=== PATIENT | female | born 1945 | race Caucasian/White ===

== ENCOUNTER 2018-03-09 02:29 | Emergency (ER) | payer OTHER ==
[~2018-03-09] VITALS: Ht 167.6 cm; Wt 70.3 kg
--- NOTE | 2018-03-09 02:40 | NUR ---
Pt bib RA 82 from home for s/p syncopal episode. Per paramedics, pt bp on the field was 68/30. Upon arrival, pt is AAO x 4 and speaking in complete sentences. Pt stated that she took a handful of norvasc and atenolol at around 199903/08/18. Pt presents to ER with right ac 20 g. Pt placed on monitor.
[2018-03-09] MEDS ORDERED: IV NORMAL SALINE 1000 ML BAG IV ONE ×3 (02:45→03:30)
[2018-03-09] MEDS ORDERED: CALCIUM GLUCONATE 1 GM/10 ML VIAL IV ONE ×4 (02:46→04:00)
[2018-03-09] MEDS ORDERED: ONDANSETRON 4 MG/2 ML VIAL ONE ×2 (02:49→03:02)
[2018-03-09] MEDS ORDERED: GLUCAGON,HUMAN RECOMBINANT 1 MG VIAL ONE ×5 (02:49→03:11)
[2018-03-09 03:00] LABS: BASOPHILS % (AUTO) 0.4 % (0.0-2.0); EOSINOPHILS # (AUTO) 0.3 K/uL (0.0-0.7); EOSINOPHILS % (AUTO) 3.4 % (0.0-7.0); HEMATOCRIT 38.5 % (31.2-41.9); HEMOGLOBIN 13.3 g/dL (10.9-14.3); LYMPHOCYTES # (AUTO) 1.4 K/uL (20.0-40.0); LYMPHOCYTES % (AUTO) 16.6 % (20.5-51.5); MEAN CORPUSCULAR HEMOGLOBIN 35.5 uug (24.7-32.8); MEAN CORPUSCULAR HGB CONC 35 g/dL (32.3-35.6); MONOCYTES # (AUTO) 0.9 K/uL (2.0-10.0); MONOCYTES % (AUTO) 10.6 % (0.0-11.0); NEUTROPHILS # (AUTO) 5.9 K/uL (1.8-8.9); PLATELET COUNT (AUTO) 311 K/uL (179-408); RED BLOOD CELL COUNT(AUTO) 3.74 MIL/uL (3.63-4.92); WHITE BLOOD COUNT (AUTO) 8.5 K/uL (3.8-11.8)
[2018-03-09] MEDS ORDERED: GLUCAGON,HUMAN RECOMBINANT 1 MG VIAL IVP ONE ×4 (03:00→05:00)
[2018-03-09] MEDS ORDERED: CALCIUM GLUCONATE IV 1 GM in IV DEXTROSE 5% 50 ML IV ONE ×8 (03:00→06:45)
[2018-03-09] MEDS ORDERED: ATROPINE SULFATE 1 MG/10 ML DISP.SYRIN ONE (03:13)
[2018-03-09] MEDS ORDERED: NOREPINEPHRINE BITARTRATE 4 MG/4 ML VIAL IV ONE (03:17)
[2018-03-09 03:28] LABS: CARBON DIOXIDE 22 mmol/L (21-32); CHLORIDE 99 mmol/L (98-107); CREATININE 1.4 mg/dL (0.6-1.3); GLUCOSE 174 mg/dL (74-106); POTASSIUM 3.5 mmol/L (3.5-5.1); UREA NITROGEN, BLOOD 23 mg/dL (7-18)
[2018-03-09] MEDS ORDERED: NOREPINEPHRINE BITARTRATE 8 MG in IV DEXTROSE 5% 500 ML IV PRN (03:30)
[2018-03-09] MEDS ORDERED: ETOMIDATE 20 MG/10 ML VIAL IV ONE (03:30)
[2018-03-09] MEDS ORDERED: SUCCINYLCHOLINE CHLORIDE 200 MG/10 ML VIAL IV ONE (03:30)
[2018-03-09 03:31] LABS: ETHANOL 92 MG/DL (0-0)
[2018-03-09 03:34] LABS: ALANINE AMINOTRANSFERASE 34 U/L (14-59); ALKALINE PHOSPHATASE 83 U/L (50-136); ASPARTATE AMINOTRANSFERASE 38 U/L (15-37); BILIRUBIN,DIRECT 0.1 mg/dL (0.0-0.2); BILIRUBIN,TOTAL 0.3 mg/dL (0.2-1.0); TOTAL PROTEIN, SERUM 5.9 g/dL (6.4-8.2)
[2018-03-09] MEDS ORDERED: INSULIN REGULAR, HUMAN 300 UNIT/3 ML VIAL ONE (03:34)
[2018-03-09 03:35] LABS: ACETAMINOPHEN < 2.0 ug/mL (10-30)
[2018-03-09] MEDS ORDERED: FENTANYL CITRATE 100 MCG/2 ML AMPUL ONE (03:39)
--- NOTE | 2018-03-09 03:42 | NUR ---
Central line placed by JOSSE TAPIA at 0702.
--- NOTE | 2018-03-09 04:09 | NUR ---
0409 - TIME OF INTUBATION
[2018-03-09] MEDS ORDERED: DEXTROSE 50% 50 ML DISP.SYRIN ONE (04:16)
--- NOTE | 2018-03-09 04:16 | NUR ---
Xray at bedside.
[2018-03-09] MEDS ORDERED: POTASSIUM CHLORIDE 50 ML ONE (04:18)
[2018-03-09] MEDS ORDERED: DRIP ONE (04:20)
[2018-03-09] MEDS ORDERED: DOPAMINE ONE (04:20)
[2018-03-09] MEDS ORDERED: CALCIUM CHLORIDE 1 GM/10 ML DISP.SYRIN IVP ONE ×8 (04:22→07:45)
[2018-03-09] MEDS ORDERED: EPINEPHRINE 1 MG/1 ML AMP ONE (04:30)
[2018-03-09] MEDS ORDERED: EPINEPHRINE 1:1000 30 MG/30 ML VIAL ONE (04:32)
[2018-03-09] MEDS ORDERED: INSULIN REGULAR, HUMAN 100 UNITS in IV NORMAL SALINE 100 ML IV ONE ×2 (04:45)
[2018-03-09] MEDS ORDERED: DOPamine IV DRIP 400 MG/250ML 250 ML ONE (04:56)
[2018-03-09] MEDS ORDERED: CALCIUM CHLORIDE 1 GM/10 ML DISP.SYRIN IV ONE (05:00)
[2018-03-09] MEDS ORDERED: EPINEPHRINE 1:10,000 1 MG/10 ML DISP.SYRIN IV ONE (05:00)
[2018-03-09] MEDS ORDERED: DEXTROSE 50% 50 ML DISP.SYRIN IV ONE ×2 (05:00→08:15)
[2018-03-09] MEDS ORDERED: MISCELLANEOUS MED XX ONE (05:00)
[2018-03-09] MEDS ORDERED: DOPamine IV DRIP 400 MG/250ML 250 ML IV ONE (05:00)
--- NOTE | 2018-03-09 05:01 | NUR ---
NG TUBE D/C'D PER ER VERBAL ORDER
[2018-03-09 05:10] LABS: ABG BASE EXCESS -19.2 mmol/L; ABG HCO3 10.2 mmol/L; ABG PCO2 36.8 mmHg (35.0-45.0); ABG PH 7.061 (7.350-7.450); ABG SITE LEFT BRACHIAL; COHb 0.9 % (0.5-1.5); MetHb 0.5 % (0.0-1.5); O2Hb 97.1 % (94.0-97.0); VENT MODE VENT - A/C; VT, ABG 500 mL
[2018-03-09] MEDS ORDERED: EPINEPHRINE 1:1000 30 MG/30 ML VIAL IV ONE (05:15)
[2018-03-09 05:19] VITALS: BP 63/36
--- NOTE | 2018-03-09 05:22 | NUR ---
DR Pacheco speaking with Dr Raymundo
--- NOTE | 2018-03-09 05:26 | NUR ---
CODE BLUE CALLED.
[2018-03-09 05:27] LABS: ALANINE AMINOTRANSFERASE 89 U/L (14-59); ALKALINE PHOSPHATASE 76 U/L (50-136); ASPARTATE AMINOTRANSFERASE 138 U/L (15-37); BILIRUBIN,TOTAL 0.4 mg/dL (0.2-1.0); CARBON DIOXIDE 17 mmol/L (21-32); CHLORIDE 102 mmol/L (98-107); CREATININE 1.4 mg/dL (0.6-1.3); POTASSIUM 4.3 mmol/L (3.5-5.1); UREA NITROGEN, BLOOD 22 mg/dL (7-18)
--- NOTE | 2018-03-09 05:27 | NUR ---
Code Jl called at 0525. Pt's at bedside. See Code sheet.
[2018-03-09 05:34] LABS: GLUCOSE 373 mg/dL (74-106)
--- NOTE | 2018-03-09 05:44 | NUR ---
Paged [facility] panel. waiting for [employer]ag[employer] TRUCK DRIVER HELPER to call back
[2018-03-09 05:53] LABS: ALANINE AMINOTRANSFERASE 155 U/L (14-59); ALKALINE PHOSPHATASE 65 U/L (50-136); ASPARTATE AMINOTRANSFERASE 242 U/L (15-37); BILIRUBIN,TOTAL 0.4 mg/dL (0.2-1.0); CARBON DIOXIDE 14 mmol/L (21-32); CHLORIDE 100 mmol/L (98-107); CREATININE 1.6 mg/dL (0.6-1.3); POTASSIUM 4.4 mmol/L (3.5-5.1); UREA NITROGEN, BLOOD 21 mg/dL (7-18)
--- NOTE | 2018-03-09 05:58 | NUR ---
2ND CODE BLUE CALLED.
--- NOTE | 2018-03-09 05:58 | NUR ---
Dr apple [facility]
--- NOTE | 2018-03-09 06:02 | NUR ---
Pt's , Vic, at bedside. Speaking to Dr. Pacheco.
[2018-03-09 06:05] LABS: GLUCOSE 690 mg/dL (74-106)
--- NOTE | 2018-03-09 06:22 | NUR ---
Dr. Junior LOAIZA MD speaking to Vic (pt ) on telephone regarding code status. Per Vic, pt , Do Not Resuscitate.
[2018-03-09 06:28] LABS: ALANINE AMINOTRANSFERASE 238 U/L (14-59); ALKALINE PHOSPHATASE 72 U/L (50-136); ASPARTATE AMINOTRANSFERASE 381 U/L (15-37); BILIRUBIN,TOTAL 0.5 mg/dL (0.2-1.0); CARBON DIOXIDE 13 mmol/L (21-32); CHLORIDE 104 mmol/L (98-107); CREATININE 1.5 mg/dL (0.6-1.3); POTASSIUM 4.2 mmol/L (3.5-5.1); TOTAL PROTEIN, SERUM 4.5 g/dL (6.4-8.2); UREA NITROGEN, BLOOD 22 mg/dL (7-18)
--- NOTE | 2018-03-09 06:30 | NUR ---
All medications administered as verbally ordered by ER MD- Dr. Pacheco. ER MD, RT, NURSE STAFF AT BEDSIDE.
[2018-03-09 06:33] LABS: GLUCOSE 423 mg/dL (74-106)
--- NOTE | 2018-03-09 06:40 | NUR ---
All medications given were verbally ordered by Dr. Junior LOAIZA MD. Medications administered w Dr. Pacheco at bedside.
[2018-03-09] MEDS ORDERED: ONDANSETRON IV *ER 4 MG/2 ML VIAL IV ONE ×2 (06:45)
[2018-03-09 06:49] LABS: ALANINE AMINOTRANSFERASE 400 U/L (14-59); ALKALINE PHOSPHATASE 83 U/L (50-136); ASPARTATE AMINOTRANSFERASE 632 U/L (15-37); BILIRUBIN,TOTAL 0.6 mg/dL (0.2-1.0); CARBON DIOXIDE 14 mmol/L (21-32); CHLORIDE 104 mmol/L (98-107); CREATININE 1.5 mg/dL (0.6-1.3); POTASSIUM 4.1 mmol/L (3.5-5.1); TOTAL PROTEIN, SERUM 4.9 g/dL (6.4-8.2); UREA NITROGEN, BLOOD 22 mg/dL (7-18)
[2018-03-09 06:51] LABS: GLUCOSE 388 mg/dL (74-106)
--- NOTE | 2018-03-09 06:53 | NUR ---
Time of pronounced at [address] Johny LOAIZA MD.
--- NOTE | 2018-03-09 06:53 | NUR ---
No audible heart tones and breath sounds. Pupils fixed & dilated. No palpable pulses & corneal reflexes. Pt pronounced at 0653. Ventilator & IV infusions turned off.
[2018-03-09 07:09] LABS: ALANINE AMINOTRANSFERASE 512 U/L (14-59); ALKALINE PHOSPHATASE 85 U/L (50-136); ASPARTATE AMINOTRANSFERASE 805 U/L (15-37); BILIRUBIN,TOTAL 0.7 mg/dL (0.2-1.0); CHLORIDE 105 mmol/L (98-107); CREATININE 1.5 mg/dL (0.6-1.3); POTASSIUM 4.6 mmol/L (3.5-5.1); TOTAL PROTEIN, SERUM 4.9 g/dL (6.4-8.2); UREA NITROGEN, BLOOD 22 mg/dL (7-18)
[2018-03-09 07:14] LABS: GLUCOSE 365 mg/dL (74-106)
[2018-03-09 07:15] LABS: CARBON DIOXIDE 10 mmol/L (21-32)
[2018-03-09] MEDS ORDERED: ATROPINE SULFATE 1 MG/10 ML DISP.SYRIN IV ONE (07:15)
[2018-03-09] MEDS ORDERED: FENTANYL CITRATE 100 MCG/2 ML AMPUL IV ONE (07:30)
--- NOTE | 2018-03-09 07:34 | NUR ---
[facility] . Spoke with shell. Gave case #[id number]
--- NOTE | 2018-03-09 07:55 | NUR ---
Allyson Wheeler spoke with Susie. Gave case # [id number]
--- NOTE | 2018-03-09 08:30 | NUR ---
Pt was brought to [facility] with the assistance of security. Nursing instrument assembly supervisor Viviana notified.
[2018-03-09] MEDS ORDERED: IV 10% DEXTROSE 1,000 ML IV STA (08:35)
[2018-03-09] MEDS ORDERED: POTASSIUM CHLORIDE 50 ML IV SCH ×3 (08:45)
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
--- NOTE | 2018-03-09 16:10 | NUR ---
2pm: [employer] officers Noemi and Ryne from [facility] arrived at the hospital in response to this SW's report from earlier today (see previous SS note). Veterans Employment Representative Hyd also present. Case was discussed with the officers. [employer] officer Noemi stated that since patient in the hospital, the report should actually be made to the Technical Project Coordinator's investigators department. SW to follow up.
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
--- NOTE | 2018-03-19 07:02 | NUR ---
Late entry: 03/09/18 Calcium Gluconate 1 GM - START: 0247 END TIME: 0248 (IV PUSH PER ER MD ORDER) Calcium Gluconate 1 GM - START: 0400 END TIME: 040 (IV PUSH PER ER MD ORDER) KaCl- START: 421 END TIME: 05 KaCl- START: 05 END TIME: 06 KaCl- START: 06 END TIME: 06 Dopamine - START: 05 END TIME: 06 Insulin- Start: 042 END TIME: 06
== END 2018-03-09 10:03 | disposition expired ==
LOC: ER 02:31
DX: T46.1X2A Poisoning by calcium-channel blockers, intentional self-harm, initial encounter (principal); J96.00 Acute respiratory failure, unspecified whether with hypoxia or hypercapnia; E87.2 Acidosis; I10 Essential (primary) hypertension; Y92.89 Other specified places as the place of occurrence of the external cause
CPT/HCPCS: 31500; 36415; 36556; 36600; 71045; 80048; 80053 ×5; 80076; 82962 ×10; 85025; 96365 ×2; 96366; 96367; 96368; 96375; 96376; 99291; 99292; G0480 ×2; G0481; J0171 ×2; J0330; J0461; J0610 ×4; J1610 ×6; J1815; J2405 ×2; J3010; J3480; J3490 ×7; J7060 ×2; A4663; C1751; J1265; J7030